=== PATIENT | female | born 1970 | race Hispanic/Latino ===

== ENCOUNTER 2021-06-19 23:08 | Emergency (ER) | payer MEDICAID ==
[~2021-06-19] VITALS: Ht 162.6 cm; Wt 99.8 kg
[2021-06-20] MEDS ORDERED: LIDOCAINE HCL 2% VISCOUS 15 ML UDCUP PO ONE (01:30)
[2021-06-20] MEDS ORDERED: MAG/ALUM/SIMETH 30 ML UDCUP PO ONE (01:30)
[2021-06-20] MEDS ORDERED: BENZ-39 PO (01:43)
[2021-06-20] MEDS ORDERED: ALBU8.5H8 IH (01:43)
[2021-06-20 01:49] VITALS: BP 146/82
[2021-06-20] MEDS ORDERED: DiphenhydrAMINE HCL 25 MG/10 ML ELIXIR UDCUP PO ONE (02:00)
[2021-06-20] MEDS ORDERED: DEXAMETHASONE 4 MG TAB PO ONE (02:00)
== END 2021-06-20 02:04 | disposition home or self-care (01) ==
LOC: EDH 23:08
DX: B34.9 Viral infection, unspecified (principal); R05.9 Cough, unspecified; J02.9 Acute pharyngitis, unspecified; Z20.822 Contact with and (suspected) exposure to COVID-19; Z79.899 Other long term (current) drug therapy
CPT/HCPCS: 87635; 87804 ×2; 99284; C9803; J8540